=== PATIENT | female | born 2000 | race African-American/Black ===

== ENCOUNTER 2018-01-28 23:11 | Emergency (ER) | payer SELFPAY ==
[~2018-01-28] VITALS: Ht 162.6 cm; Wt 83.0 kg
[2018-01-29 00:28] LABS: CLARITY URINE CLEAR (CLEAR); COLOR URINE YELLOW (YELLOW); KETONES URINE NEGATIVE (NEGATIVE); LEUKOCYTE ESTERASE URINE TRACE (NEGATIVE); NITRITE URINE NEGATIVE (NEGATIVE); OCCULT BLOOD URINE NEGATIVE (NEGATIVE); PROTEIN URINE NEGATIVE (NEGATIVE); UROBILINOGEN URINE 0.2 E.U./dL (0.2-1.0)
[2018-01-29] MEDS ORDERED: ONDANSETRON HCL 4MG/2ML INJ IV STA (01:50)
[2018-01-29] MEDS ORDERED: SODIUM CHLORIDE 0.9% 1,000 ML IV ONE (01:50)
[2018-01-29] MEDS ORDERED: MORPHINE SULFATE 10 MG/ML CPJ IV ONE ×3 (02:00→04:15)
[2018-01-29 02:46] LABS: BASOPHILS % 0.3 % (0.0-2.0); EOSINOPHILS % 0.4 % (0.0-5.0); HEMATOCRIT. 33.2 % (36.0-48.0); LYMPHOCYTES % 11.8 % (20.0-50.0); MEAN CORPUSCULAR HEMOGLOBIN 27.3 pg (28.0-32.0); MEAN CORPUSCULAR VOLUME 82.8 fL (81.0-99.0); MEAN PLATELET VOLUME 8.1 fl (7.4-10.4); MONOCYTES % 2.7 % (2.0-8.0); NEUTROPHILS % 84.8 % (40.0-76.0); PLATELET 364 x1000/uL (130-400); RED BLOOD CELL COUNT 4.01 mill/uL (4.2-5.4); RED CELL DISTRIBUTION WIDTH 18.3 % (11.6-14.6)
[2018-01-29 02:47] LABS: CHLORIDE 108 mEq/L (98-107)
[2018-01-29 02:50] LABS: PROTHROMBIN TIME 10.3 sec (9.1-11.1)
[2018-01-29] MEDS ORDERED: DIPHENHYDRAMINE 50MG/ML VIAL IV ONE (03:30)
[2018-01-29] MEDS ORDERED: LORAZEPAM 0.5MG TABLET PO ONE (04:00)
[2018-01-29 04:48] LABS: *AMPHETAMINES SCREEN URINE NEGATIVE (NEGATIVE); *BARBITURATES SCREEN URINE NEGATIVE (NEGATIVE); *BENZODIAZEPINES SCREEN URINE NEGATIVE (NEGATIVE); *COCAINE SCREEN URINE NEGATIVE (NEGATIVE)
[2018-01-29 04:49] LABS: CANNABINOID URINE SCREEN NEGATIVE (NEGATIVE); METHADONE URINE SCREEN NEGATIVE (NEGATIVE); OPIATES URINE SCREEN NEGATIVE (NEGATIVE); PHENCYCLIDINE URINE SCREEN NEGATIVE (NEGATIVE)
[2018-01-29 05:09] VITALS: BP 144/95
== END 2018-01-29 05:06 | disposition home or self-care (01) ==
LOC: ER 23:11
DX: M79.10 Myalgia, unspecified site (principal); J45.909 Unspecified asthma, uncomplicated; F17.200 Nicotine dependence, unspecified, uncomplicated; D57.1 Sickle-cell disease without crisis; F32.9 Major depressive disorder, single episode, unspecified; Z90.81 Acquired absence of spleen
CPT/HCPCS: 36415; 80053; 80305; 81003; 81025; 83690; 85025; 85044; 85610; 96374; 96375; 96376; 99283; 99406; J1200; J2270; J2405; J7030